=== PATIENT | female | born 1980 | race Hispanic/Latino ===

== ENCOUNTER 2024-05-08 20:35 | Emergency (ER) | payer SELFPAY ==
[~2024-05-08] VITALS: Ht 162.6 cm; Wt 99.8 kg
--- NOTE | 2024-05-08 20:38 | NUR ---
COVID, FLU AND STREP SWABS COLLECTED UA CUP PROVIDED
[2024-05-08 21:22] LABS: RAPID GROUP A STREP negative (NEGATIVE)
[2024-05-08 21:23] LABS: SARS-CoV-2, RNA, NAAT NEGATIVE SARS CoV-2 (NEGATIVE)
[2024-05-08 21:28] LABS: APPEARANCE,URINE CLEAR (CLEAR); BILIRUBIN,URINE NEGATIVE (NEGATIVE); COLOR,URINE YELLOW (YELLOW); GLUCOSE, URINE (UA) NEGATIVE (NEGATIVE); KETONES,URINE 5 mg/dL (NEGATIVE); LEUKOCYTE ESTERASE ,URINE NEGATIVE Leu/uL (NEGATIVE); NITRATE,URINE NEGATIVE (NEGATIVE); OCCULT BLOOD,URINE NEGATIVE (NEGATIVE); PROTEIN,URINE 100 mg/dL (NEGATIVE)
[2024-05-08 21:32] LABS: INFLUENZA TYPE A Negative For Type A (NEGATIVE); INFLUENZA TYPE B Negative For Type B (NEGATIVE)
[2024-05-08 21:33] LABS: ADD UA MICROSCOPIC YES
[2024-05-08 21:36] LABS: HCG,QUALITATIVE URINE NEGATIVE (NEGATIVE); MUCUS,URINE FEW LPF (None Seen); OTHER CASTS, URINE 1 /LPF (None Seen); SQUAMOUS EPITHELIAL CELL,UR MOD /HPF (0-2)
[2024-05-08] MEDS ORDERED: AZIT250T9 PO (22:12)
[2024-05-08] MEDS ORDERED: METH4TAB3 PO (22:12)
--- NOTE | 2024-05-08 22:12 | ERN ---
General Chief Complaint: Multiple Complaints Stated Complaint: CHILLS, GBW, COUGH Time Seen by MD: 21:05 Time Seen by Midlevel: 21:05 History of Present Illness Allergies: Coded Allergies: No Known Allergies (Unverified Allergy, Unknown, 05/08/24) Past Medical History Past Medical History: Hypertension Medical History Other: NON COMPLIANT Past Surgical History: Other Surgical History Other: LEFT KIDNEY Female( History) LMP: Apr 24, 2024 Results Laboratory and Microbiology Lab and Micro Result Laboratory Tests Test 05/08/24 20:37 05/08/24 21:07 Influenza Type A Antigen Negative For Type A Influenza Type B Antigen Negative For Type B SARS-CoV-2, RNA, NAAT NEGATIVE SARS CoV-2 Group A Streptococcus Rapid negative (NEGATIVE) Urine Color YELLOW (YELLOW) Urine Appearance CLEAR (CLEAR) Urine pH 6.0 (5.0-8.0) Urine Specific [place] 1.045 (1.001-1.031) Urine Protein 100 mg/dL (NEGATIVE) H Urine Glucose (UA) NEGATIVE mg/dL (NEGATIVE) Urine Ketones 5 mg/dL (NEGATIVE) H Urine Occult Blood NEGATIVE (NEGATIVE) Urine Nitrate NEGATIVE (NEGATIVE) Urine Bilirubin NEGATIVE mg/dL (NEGATIVE) Urine Urobilinogen 2.0 mg/dL (0.2-1.0) H Urine Leukocyte Esterase NEGATIVE Sarah/uL Urine RBC 2-5 /HPF (0-1) H Urine WBC 2-5 /HPF (0-1) H Urine Squamous Epithelial Cells MOD /HPF (0-2) Urine Bacteria None /HPF (None Seen) Urine Other Casts 1 /LPF (None Seen) Urine HCG, Qualitative NEGATIVE (NEGATIVE) ED Course Orders Procedure Category Date Status Time Covid Rna Naat LAB 05/08/24 Complete 20:37 Influenza Type A & B, LAB 05/08/24 Complete Rapid 20:37 Rapid (Group A Strep) LAB 05/08/24 Complete 20:37 Urinalysis Profile LAB 05/08/24 Complete 20:37 ,Urine Test LAB 05/08/24 Complete 20:37 Chest 1vw RAD 05/08/24 Taken 20:37 12 Lead Ekg Tracing- EKG 05/08/24 Verified Technical 22:11 Vital Signs Date Time Temp Pulse Resp B/P (MAP) Pulse Ox O2 Delivery O2 Flow Rate FiO2 05/08/24 20:36 98.1 84 16 146/78 98 Room Air DX & DISP Disposition: Discharge Departure Impression: Primary Impression: Acute bronchitis Condition: Stable Scripts Azithromycin (Azithromycin) 250 Mg Tablet 1 TAB PO AD for 5 Days, #6 TAB 0 Refills 2 the first day followed by 1 for days 2-5 Prov: LINO NIETO 05/08/24 Methylprednisolone (Medrol) 4 Mg Tab.ds.pk 1 TAB PO AD for 6 Days, #21 TAB 0 Refills 6 on day 1 then reduce by one tablet daily until gone Prov: LINO NIETO 05/08/24 Time of Disposition: 22:12 I have reviewed the case, and I agree with, Diagnosis and Plan LINO NIETO May 08, 2024 22:12
[2024-05-08 22:38] VITALS: BP 142/74; PULSE 86; RESP 18; TEMP 98; O2SAT 98
--- NOTE | 2024-05-09 08:27 | HMCIMG ---
PORTABLE CHEST RADIOGRAPH INDICATION: COUGH COMPARISON: None FINDINGS: Heart size is normal. The pulmonary vascularity and evert appear normal. No abnormal pulmonary parenchymal opacity or consolidation identified. No significant pleural effusion noted. No pneumothorax detected. IMPRESSION: No radiographic evidence for any acute cardiopulmonary process.
--- NOTE | 2024-05-09 17:50 | EKG ---
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
== END 2024-05-08 22:49 | disposition home or self-care (01) ==
LOC: EDH 20:35
DX: J20.9 Acute bronchitis, unspecified (principal); I10 Essential (primary) hypertension; Z20.822 Contact with and (suspected) exposure to COVID-19; Z98.890 Other specified postprocedural states
CPT/HCPCS: 71045; 81001; 81025; 87635; 87804; 87880; 93005; 99285